=== PATIENT | male | born 1995 | race African-American/Black ===

== ENCOUNTER 2018-06-01 18:20 | Emergency (ER) | payer SELFPAY, MEDICAID, OTHER ==
[2018-06-01] MEDS: IBUPROFEN 800 MG TAB PO (19:07)
== END 2018-06-01 19:30 | disposition home or self-care (01) ==
LOC: M ED 18:20
DX: S63.277A Dislocation of unspecified interphalangeal joint of left little finger, initial encounter (principal); W22.8XXA Striking against or struck by other objects, initial encounter; Y92.018 Other place in single-family (private) house as the place of occurrence of the external cause; F17.210 Nicotine dependence, cigarettes, uncomplicated
CPT/HCPCS: 73140

== ENCOUNTER → 2019-06-08 | Outpatient (REF) | payer OTHER ==
[~2019-06-08] MED LIST: IBUP-1022 PO
[2019-06-08 22:02] LABS: CHLAMYDIA DNA AMPLIFICATION NEGATIVE (NEGATIVE); GC DNA AMPLIFICATION NEGATIVE (NEGATIVE)
== END ==
LOC: M SFHCLERA 14:41
PROVIDERS: ATTEND Nurse Practitioner Family
DX: R30.0 Dysuria (principal)

== ENCOUNTER → 2019-10-15 | Outpatient (REF) | payer OTHER, SELFPAY ==
[2019-10-15 18:03] LABS: CHLAMYDIA DNA AMPLIFICATION POSITIVE (NEGATIVE); GC DNA AMPLIFICATION NEGATIVE (NEGATIVE)
== END ==
LOC: M SFHCLERA 10:10
PROVIDERS: ATTEND Physician Assistant
DX: Z20.2 Contact with and (suspected) exposure to infections with a predominantly sexual mode of transmission (principal)

== ENCOUNTER 2019-10-20 01:12 | Emergency (ER) | payer SELFPAY ==
[~2019-10-20] VITALS: Ht 180.3 cm; Wt 81.8 kg
[2019-10-20 01:12] VITALS: BP 149/76
[2019-10-20] MEDS ORDERED: AZITHROMYCIN 250MG TABLET PO ONE (01:30)
[2019-10-20] MEDS ORDERED: LIDOCAINE 1% SDV 5 ML VIAL DILUENT ONE (01:30)
[2019-10-20] MEDS ORDERED: cefTRIAXone SOD 250MG VIAL (J0696 PER 250MG) IM ONE (01:30)
[2019-10-20 03:13] LABS: CHLAMYDIA DNA AMPLIFICATION POSITIVE (NEGATIVE); GC DNA AMPLIFICATION NEGATIVE (NEGATIVE)
== END 2019-10-20 01:44 | disposition home or self-care (01) ==
LOC: M ED 01:12
DX: A74.9 Chlamydial infection, unspecified (principal); F17.210 Nicotine dependence, cigarettes, uncomplicated
CPT/HCPCS: 81001; 87661; 96372; 99282; J0696

== ENCOUNTER → 2019-11-23 | Outpatient (REF) | payer OTHER ==
[2019-11-23 14:58] LABS: CHLAMYDIA DNA AMPLIFICATION NEGATIVE (NEGATIVE); GC DNA AMPLIFICATION NEGATIVE (NEGATIVE)
== END ==
LOC: M SFHCLERA 10:03
PROVIDERS: ATTEND Physician Assistant
DX: R30.9 Painful micturition, unspecified (principal); Z20.9 Contact with and (suspected) exposure to unspecified communicable disease

== ENCOUNTER 2020-03-18 02:57 | Emergency (ER) | payer SELFPAY ==
[~2020-03-18] VITALS: Ht 182.9 cm; Wt 82.4 kg
[2020-03-18 02:57] VITALS: BP 135/83
[2020-03-18] MEDS ORDERED: DOXY100C37 PO (03:22)
[2020-03-18] MEDS ORDERED: LIDOCAINE 1% SDV 5ML VIAL DILUENT ONE (03:30)
[2020-03-18] MEDS ORDERED: cefTRIAXone SOD 1GM VIAL (J0696 PER 250MG) IM ONE (03:30)
[2020-03-18 05:06] LABS: CHLAMYDIA DNA AMPLIFICATION NEGATIVE (NEGATIVE); GC DNA AMPLIFICATION NEGATIVE (NEGATIVE)
== END 2020-03-18 03:54 | disposition home or self-care (01) ==
LOC: M ED 02:57
DX: N34.1 Nonspecific urethritis (principal); F17.200 Nicotine dependence, unspecified, uncomplicated
CPT/HCPCS: 87491; 87591; 96372; 99282; J0696